=== PATIENT | female | born 1990 | race American Indian/Alaskan Native ===

== ENCOUNTER 2016-04-03 19:57 | Emergency (ER) | payer OTHER ==
[2016-04-04] MEDS ORDERED: NORCO 5/325 PO ONE (02:41)
[2016-04-04] MEDS ORDERED: FLEXERIL PO ONE (02:41)
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
[2016-04-04 03:44] VITALS: BP 130/88
== END 2016-04-04 03:47 | disposition home or self-care (01) ==
LOC: ED 19:57
DX: M25.512 Pain in left shoulder (principal); V89.2XXA Person injured in unspecified motor-vehicle accident, traffic, initial encounter; Y93.89 Activity, other specified; Y99.9 Unspecified external cause status; Y92.410 Unspecified street and highway as the place of occurrence of the external cause
CPT/HCPCS: 99282